=== PATIENT | female | born 1960 | race African-American/Black ===

== ENCOUNTER 2021-07-29 23:52 | Emergency (ER) | payer OTHER ==
[~2021-07-29] VITALS: Ht 154.9 cm; Wt 65.9 kg
[2021-07-30 00:15] VITALS: BP 147/72
[2021-07-30] MEDS ORDERED: PSYL0.4C2 PO (01:09)
--- NOTE | 2021-07-30 01:09 | ED.ADGEN ---
Past Medical History Past Surgical History: Knee Replacement Additional Past Surgical Histo: BILATERAL KNEE, RIGHT WRIST SURGERY General Adult EDM: Chief Complaint: RECTAL BLEED HPI: HPI: Patient is a 61 year old female coming in for rectal bleeding today. Patient states it is painless. States that she has had streaks of blood every time she tries to wipe and noticed some blood in her underwear. Patient had a large painful bowel movement yesterday. Has a history of chronic constipation and sometimes goes weeks without having a bowel movement. Patient states her stools are usually hard. No other complaints. Review of Systems: Review of Systems: All other systems within normal limits except for as noted in the HPI Allergies: Allergies: Allergies Coded Allergies Type Severity Reaction Last Updated Verified aspirin Allergy Unknown 07/30/21 Yes codeine Allergy Unknown 07/30/21 Yes strawberry Allergy Unknown 07/30/21 Yes Physical Exam: PE: Constitutional: Well developed, well nourished, no acute distress, non-toxic appearance. [] HENT: Normocephalic, atraumatic, bilateral external ears normal, nose normal. [] Eyes: PERRLA, conjunctiva normal, no discharge. [] Neck: No rigidity, supple, no stridor. [] Cardiovascular: Regular rate and rhythm, brisk cap refill [] Lungs & Thorax: Non labored symmetric respirations, no tachypnea or respiratory distress [] Abdomen: Soft, nondistended. Skin: Warm, dry, no erythema, no rash. External and internal hemorrhoids on KIMBERLY. No signs of active bleeding, but friable tissue. No signs of thrombosis of hemorrhoids. No active bleeding, no fissures [] Back: Unremarkable Extremities: No deformities, range of motion grossly intact, no lower extremity edema [] Neurologic: Alert and oriented X 3, no focal deficits noted. [] Psychologic: Affect normal, judgement normal, mood normal. [] Current Patient Data: Vital Signs: Vital Signs Date Time Temp Pulse Resp B/P (MAP) Pulse Ox O2 Delivery O2 Flow Rate FiO2 07/30/21 00:15 97.6 90 18 147/72 (97) 100 Room Air 97.6 EKG: EKG: [] Heart Score: C/O Chest Pain: No Risk Factors: Risk Factors: DM, Current or recent (<one month) smoker, HTN, HLP, family history of CAD, obesity. Risk Scores: Score 0 - 3: 2.5% MACE over next 6 weeks - Discharge Home Score 4 - 6: 20.3% MACE over next 6 weeks - Admit for Clinical Observation Score 7 - 10: 72.7% MACE over next 6 weeks - Early Invasive Strategies Radiology/Procedures: Radiology/Procedures: [] Course & Med Decision Making: Course & Med Decision Making Pertinent Labs and Imaging studies reviewed. (See chart for details) [] Dragon Disclaimer: Dragon Disclaimer: This electronic medical record was generated, in whole or in part, using a voice recognition dictation system. Departure Departure Impression: Primary Impression: Hemorrhoids Disposition: HOME / SELF CARE / HOMELESS Condition: STABLE Referrals: NO PCP (PCP) Patient Instructions: Hemorrhoids Scripts Psyllium Husk (Metamucil) 0.4 Gm Capsule 1 CAP PO BID for stool softner for 20 Days, #40 CAP 0 Refills Prov: DAVID TRIANA MD 07/30/21 DAVID TRIANA MD Jul 30, 2021 01:09
== END 2021-07-30 01:23 | disposition home or self-care (01) ==
LOC: ER 23:52
DX: K64.4 Residual hemorrhoidal skin tags (principal); K64.8 Other hemorrhoids; Z88.6 Allergy status to analgesic agent; Z88.5 Allergy status to narcotic agent; Z91.018 Allergy to other foods
CPT/HCPCS: 99282